=== PATIENT | female | born 1970 | race Caucasian/White ===

== ENCOUNTER 2022-12-10 16:55 | Emergency (ER) | payer OTHER, SELFPAY ==
[2022-12-10 16:58] VITALS: BP 113/03; PULSE 64; RESP 14; TEMP 36.6; O2SAT 100; BMI 27.3
--- NOTE | 2022-12-10 19:00 | EKG12_ITS ---
Test Reason : CP Blood Pressure : / mmHG Vent. Rate : 066 BPM Atrial Rate : 066 BPM P-R Int : 126 ms QRS Dur : 086 ms QT Int : 410 ms P-R-T Axes : 038 017 -08 degrees QTc Int : 429 ms Normal sinus rhythm Nonspecific ST abnormality Abnormal ECG Confirmed by ORA ROSENTHAL, FARZAD ([id number]), copy editor SHAKIRA DU ([id number]) on 12/11/2022 2:00:53 PM Referred By: ZOEY Confirmed By:FARZAD PAYAN MD
--- NOTE | 2022-12-10 19:44 | EX.ED.GENINJ ---
HPI History of Present Illness Chief Complaint: Fall Narrative Narrative: 52-year-old female presenting after mechanical fall. She states she was walking on the sidewalk and tripped. She fell forward onto her left hand, left elbow, left knee. She states she does not believe she hit her head or got knocked out. Not on any blood thinners. PFSH PFSH Allergy/AdvReac Type Severity Reaction Status Date / Time latex AdvReac Itching Verified 12/10/22 16:57 Social History Smoking Status: Never smoker ROS ROS ED Review of Systems ROS Unobtainable: Denies due to encephalopathy Constitutional Constitutional ED: Denies chills or fever(s) Eyes Eyes: Denies blurry vision ENT ENT ED: Denies rhinorrhea or sore throat Cardiovascular Cardiovascular: Denies chest pain or palpitations Respiratory/Chest Respiratory/Chest: Denies cough or dyspnea Gastrointestinal Gastrointestinal: Denies abdominal pain or vomiting Genitourinary Genitourinary ED: Denies dysuria Musculoskeletal Musculoskeletal: Reports other Details: Left elbow pain, left hand pain ; Denies myalgias or neck pain Integumentary Reports Abrasions Neurologic Neurologic: Denies headache(s) or paresthesias Psychiatric Psychiatric: Denies anxiety or depression Endocrine Endocrinology: Reports cold intolerance EXAM Physical Exam Const Vital Signs: 12/10/22 16:58 12/10/22 19:10 Temperature 98 F Temperature Source Temporal Pulse Rate 64 Respiratory Rate 14 Respiratory Depth Normal Respiratory Pattern Normal Blood Pressure 113/03 L Blood Pressure Mean 39 Pulse Ox 100 Oxygen Delivery Method Room Air MDM MDM MDM Narrative Medical decision making narrative: Patient presenting with mechanical fall. She states that she was walking outside and tripped on sidewalk. She believes it was either a crack or an elevated area of the sidewalk. She states she did not hit her head or lose consciousness. Left hand and has a superficial abrasion here. This does not appear to need sutures. She states that her left elbow hurts but she is ranging this very well mental believe she is an x-ray of the left elbow. She is also got a contusion to the left knee but is able to stand and walk without any difficulty. X-ray of the left hand on my interpretation shows no acute fracture or subluxation. She did develop some bruising on the hand. She was able to remove the ring prior to the swelling. Radiology interpreted the x-ray and agrees. Patient discharged home in stable condition. Impression: 1. Mechanical fall 2. Left hand contusion 3. Left knee contusion Lab Data Attestation: I reviewed the patient's lab results. Radiography Diagnostic Testing: Clinical Impression(s) from Imaging Studies Hand X-Ray 12/10/22 20:00 IMPRESSION: Negative left hand x-rays. Electronically Signed: Nadir Lee MD at 20:13 EST , Discharge Plan Triage Chief Complaint: Fall ED Provider: Julian Freire Dx/Rx/DC Orders Instructions: ED Hand Contusion, ED Skin Avulsion Primary Care Provider: Care Physician,No Primary Referrals: Care Physician,No Primary [Primary Care Provider] - Disposition Disposition: Home, Self Care
--- NOTE | 2022-12-10 20:00 | RAD_ITS ---
EXAM: XR LEFT HAND COMPLETE, 3 OR MORE VIEWS CLINICAL INDICATION: pain TECHNIQUE: Frontal, lateral and oblique views of the left hand. This report was created using [employer] report generation technology. COMPARISON: None. FINDINGS: BONES/JOINTS: Unremarkable. No acute fracture. No subluxation. Normal alignment. Preservation of the joint space. No sclerotic or destructive changes observed. SOFT TISSUES: Unremarkable. No soft tissue swelling or gas. No radiopaque foreign body. RAD/Hand Min 3 Views IMPRESSION: Negative left hand x-rays. Electronically Signed: Nadir Lee MD at 20:13 EST ,
--- NOTE | 2022-12-10 20:59 | ED.RN ---
CALLED [facility] FOR DRUG SCREEN
--- NOTE | 2022-12-10 21:07 | ED.RN ---
Pt requested to fill out Workmans comp form. Drug screen is required for [employer] [facility]. Radha called. Pt. filling out form then will be placed inthe waiting room to wait for Radha.
== END 2022-12-10 21:34 | disposition home or self-care (01) ==
PROVIDERS: Emergency Provider Student in an Organized Health Care Education/Training Program; Visit Provider Student in an Organized Health Care Education/Training Program
DX: S80.02XA Contusion of left knee, initial encounter (principal); S60.222A Contusion of left hand, initial encounter; W10.1XXA Fall (on)(from) sidewalk curb, initial encounter
CPT/HCPCS: 73130; 93005; 99282

== ENCOUNTER 2023-01-27 15:00 | Outpatient (RCR) | payer OTHER, SELFPAY ==
--- NOTE | 2023-01-15 12:25 | HP.OTEVAL_ITS ---
Patient's Visit Information MIKE TARANGO is a 52 year old F, referred to Occupational Therapy by Dr. Steven Hutton MD, with a diagnosis of 5th. Date of Evaluation: 01/15/23 Occupational Therapist: Radha Butler, ANKIT/Ashwin, CHT - Subjective This 52 year old female was seen for OT eval with dx of left 5th MC fracture. pt states while at work she was outside taking a walk on the sidewalk where she tripped and fell on 2022. pt states she suffered some other injuries but is OK. pt states she went to ER due to injuries and was seeing stars and she was not sure she hit her head. pt works for [employer]. Pt works 8 hours Mon-. 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 pt is right handed. pt states she has not been using her left hand for daily occupations due to soreness and weakness. pt would like to return to her PLOF. - Pain left hand 0 Pain Intensity Range: 4 - ROM Wrist: right 60/70 left 65/60 MP: right 0/95 left 0/90 PIP: right 0/90 left 0/90 DIP: right 0/65 left 0/60 ROM Comments: after moist heat DIP Flexion 75*. and left wrist ROM increased as well 65/75 - Strength Trailer Body Assembler: right 40# left 15# Lateral Pinch: right 10# left 10# Tripod Pinch: right 12# left 12# Strength Comments: pt demo with a decrease in left global climate change researcher strength - Sensation Sensation Comments: denies - Quick DASH-Disab of Arm,Shoulder& Hand Quick DASH Score: 16.6650 - Goals Goal:Trailer Body Assembler/Pinch strength at least 75% of unaffected hand: Yes Goal:No pain with affected hand use: Yes Goal:Full use of affected hand in daily activities including: Yes - Rehabilitation General Assessment: pt arrives 5 weeks and 1 day from [facility]. Pt is demo with a decrease in functional left global climate change researcher strength at this time. Pt has pain with use of left hand limiting her ind. with ADLs and IADLs. pt would benefit from skilled OT services 2-3x week for 6 weeks to return pts left global climate change researcher strength to her PLOF. Today therapist ed. pt on ROM and initiation of left global climate change researcher strength. pt demo understanding and agrees to POC. Rehabilitation Potential: Good - Anticipated Interventions A/AAROM/PROM, Strengthening, Modalities, Joint Protection/Energy Conservation, Home Program - Visit Plan Frequency: 2-3x /Week Duration: 4 Weeks TEXT: Thank you for the opportunity to evaluate your patient. For Medicare and Medicare HMO plans, please review the plan of care and approve it. It will need to be FAXED BACK to us at [phone] for Medicare purposes. Please let me know if there are questions or concerns regarding this plan of care. Physician Signature: Date:
--- NOTE | 2023-01-28 10:28 | HP.OTDCSUM ---
It has been my pleasure to treat MIKE TARANGO under orders from Dr. Steven Hutton MD, for the diagnosis of 5th for a total of 5 visit(s). Please see the following information for a summary of their discharge status. % Improvement: 90 Objective/Function: left geophysical manager strength 40# this is increasing from 15#. pt state she as returned to using her hand with ADls- making her bed and doing other daily tasks without difficulty. Therapist ed. pt that she has met the OT goals at this time and can be d/c with HEP. Pt demo understanding. Therapist ed. pt on UB t-band HEP pt demo understanding. Patient Goals: Regain Mobility, Regain Strength, Decrease Pain, Use Hand/Wrist/Arm Normally Again Goal:Communication Arts Lecturer/Pinch strength at least 75% of unaffected hand: Yes Goal:No pain with affected hand use: Yes Goal:Full use of affected hand in daily activities including: Yes Plan: add postural ex. Discharge Comments: pt met goals by 2nd visit and reported IND with ADLs and IADLs. pt was ed. on general UB strengthening and encouraged to join health and wellness program as she enjoyed the ex. pt was receptive. If there are questions or concerns regarding this patient's occupational therapy, please fell free to call me at [phone]. Thank you for the referral of this patient. Sincerely, Radha Butler OTR/L, CHT
== END 2023-01-27 19:00 | disposition home or self-care (01) ==
LOC: OT 15:00
PROVIDERS: Referring Provider Orthopaedic Surgery Sports Medicine; Visit Provider Orthopaedic Surgery Sports Medicine
DX: S62.308A Unspecified fracture of other metacarpal bone, initial encounter for closed fracture (principal); S60.222A Contusion of left hand, initial encounter
CPT/HCPCS: 97110; 97166; 97530

== ENCOUNTER → 2023-04-16 | Outpatient (CLI) | payer OTHER, SELFPAY ==
[2023-04-16 13:12] LABS: Absolute Lymphocyte Count 2.67 X10^3/uL (0.83-4.51); Absolute Neutrophil Count 4.5 X10^3/uL (2.0-7.7); Basophil# 0.04 X10^3/uL; Basophil% 0.5 % (0-1); Eosinophil# 0.28 X10^3/uL; Eosinophils% 3.5 % (0-5); Hematocrit 42.9 % (37-47); Hemoglobin 12.9 g/dL (12.0-15.0); Lymphocyte # 2.67 X10^3/ul (0.83-4.51); Lymphocyte % 33.2 % (19-41); Mean Corp Hgb Conc 30.1 g/dL (32-36); Mean Corpuscular Hgb 28.9 pg (27.0-32.0); Mean Corpuscular Volume 96.2 fL (81-99); Monocyte# 0.51 X10^3/uL; Monocyte% 6.3 % (0-10); NRBC Flagged by Analyzer 0 % (0-5); Neutrophil # 4.51 X10^3/uL (2.7-7.7); POSITIVE COUNT YES; RBC Distribution Width CV 13.6 % (11.6-14.6); RBC Distribution Width SD 48.4 fl (35.1-43.9); Red Blood Count 4.46 M/mm3 (4.2-5.4); White Blood Count 8.1 K/mm3 (4.4-11.0)
[2023-04-16 13:41] LABS: Differential Indicated SCAN CRITERIA MET
[2023-04-16 13:42] LABS: Differential Comment SCANNED; Platelet Estimate ADEQUATE (ADEQ)
[2023-04-16 14:23] LABS: ALB/GLOB Ratio 1.1 RATIO (0.9-2.4); AST(SGOT) 18 U/L (15-37); Alanine Aminotransfer ALT/SGPT 25 U/L (13-56); Albumin, Serum 3.8 g/dL (3.2-5.0); Alkaline Phosphatase 92 U/L (45-117); Anion Gap 6 (5-15); BUN 12 mg/dL (7-18); BUN/Creat Ratio 15.7 RATIO (10-20); Calcium,Total 9.3 mg/dL (8.5-10.1); Chloride 110 mmol/L (98-107); Cholesterol 189 mg/dL (200); Creatinine, Serum 0.76 mg/dL (0.55-1.02); EST Glomerular Filtration Rate 84 mL/min (>60); Est Glom Filt Rate - Afr Amer 102 mL/min (>60); Globulin 3.4 g/dL (2.2-4.2); Glucose 94 mg/dL (74-106); High Density Lipoprotein 67 mg/dL; Protein, Total 7.2 g/dL (6.4-8.2); Sodium Level 141 mmol/L (136-145); Thyroid Stim Hormone (TSH) 2.92 uIU/mL (0.358-3.74); Triglycerides 88 mg/dL; Very Low Density Lipoprotein 18 mg/dL (5-40)
[2023-04-16 14:45] LABS: Progesterone Level 15.57 ng/mL (See Comment); T3 Total - Triiodothyronine 0.83 ng/mL (0.6-1.81)
[2023-04-16 15:44] LABS: Hemoglobin A1c 5.4 % (3.8-5.6)
[2023-04-23 01:06] LABS: Estrogen, Total, Serum 59 pg/mL (.)
== END | disposition home or self-care (01) ==
LOC: BIMLAB 08:36
PROVIDERS: PCP Internal Medicine; Visit Provider Internal Medicine
DX: E03.9 Hypothyroidism, unspecified (principal); R73.03 Prediabetes; Z79.890 Hormone replacement therapy
CPT/HCPCS: 36415; 80053; 80061; 82672; 83036; 84144; 84439; 84443; 84480; 85025

== ENCOUNTER → 2023-08-04 | Outpatient (CLI) | payer OTHER, SELFPAY ==
[2023-08-04 15:25] LABS: Absolute Lymphocyte Count 2.59 X10^3/uL (0.83-4.51); Absolute Neutrophil Count 4.9 X10^3/uL (2.0-7.7); Basophil# 0.04 X10^3/uL; Basophil% 0.5 % (0-1); Eosinophil# 0.13 X10^3/uL; Eosinophils% 1.6 % (0-5); Hematocrit 42.7 % (37-47); Hemoglobin 13.2 g/dL (12.0-15.0); Lymphocyte # 2.59 X10^3/ul (0.83-4.51); Lymphocyte % 31.2 % (19-41); Mean Corp Hgb Conc 30.9 g/dL (32-36); Mean Corpuscular Volume 93.8 fL (81-99); Mean Platelet Vol. 10.9 fl (6.2-12.0); Monocyte% 7.2 % (0-10); NRBC Flagged by Analyzer 0 % (0-5); Platelet Count 329 K/mm3 (150-450); RBC Distribution Width SD 44.7 fl (35.1-43.9); Red Blood Count 4.55 M/mm3 (4.2-5.4); White Blood Count 8.3 K/mm3 (4.4-11.0)
[2023-08-04 15:57] LABS: ALB/GLOB Ratio 1.1 RATIO (0.9-2.4); AST(SGOT) 17 U/L (15-37); Alanine Aminotransfer ALT/SGPT 30 U/L (13-56); Albumin, Serum 4.1 g/dL (3.2-5.0); Alkaline Phosphatase 106 U/L (45-117); Anion Gap 5 (5-15); BUN 13 mg/dL (7-18); BUN/Creat Ratio 18.2 RATIO (10-20); Calcium,Total 9.5 mg/dL (8.5-10.1); Chloride 108 mmol/L (98-107); Creatinine, Serum 0.71 mg/dL (0.55-1.02); EST Glomerular Filtration Rate 91 mL/min (>60); Est Glom Filt Rate - Afr Amer 110 mL/min (>60); Globulin 3.8 g/dL (2.2-4.2); Glucose 101 mg/dL (74-106); Potassium 3.6 mmol/L (3.5-5.1); Protein, Total 7.9 g/dL (6.4-8.2); Sodium Level 141 mmol/L (136-145); Thyroid Stim Hormone (TSH) 0.97 uIU/mL (0.358-3.74)
[2023-08-06 11:08] LABS: ANTINUCLEAR ANTIBODIES DIRECT Negative (Negative)
== END | disposition home or self-care (01) ==
LOC: BIMLAB 12:29
PROVIDERS: PCP Internal Medicine; Visit Provider Internal Medicine
DX: R51.9 Headache, unspecified (principal); E03.9 Hypothyroidism, unspecified
CPT/HCPCS: 36415; 80053; 84443; 85025; 86038; 86225; 86235

== ENCOUNTER → 2024-05-20 | Outpatient (CLI) | payer OTHER, SELFPAY ==
--- NOTE | 2024-05-20 13:03 | BI_ITS ---
MAMMOGRAPHY - BILATERAL SCREENING REASON FOR EXAM: Female, 54 years old. Routine annual screening examination. PERTINENT HISTORY: Non-contributory. TECHNIQUE: Digital bilateral breast aicha (3D mammographic acquisition) in the CC and MLO projections. 2-D mediolateral oblique (MLO) and craniocaudad (CC) views of both breasts were obtained. CAD: Full Field Digital Mammography with Computer Added Detection was performed. COMPARISON: Comparison is made with prior outside examination dated June 21, 2021. FINDINGS: Breast Composition: The breasts are heterogeneously dense, which may obscure small masses. There are no dominant masses or suspicious calcifications. No other significant abnormalities are identified. There has been no significant change since the prior study. BI/SCRN MAMM (CAD)W/AICHA BILAT IMPRESSION: Stable bilateral screening mammogram. Yearly follow-up mammogram recommended. (A) ASSESSMENT CATEGORY: BIRADS Category 1: Negative. A letter regarding these results will be sent to the patient by the facility within 30 days. Approximately 10% of breast cancers are not detected by mammography. A normal mammogram should not delay biopsy of a clinically suspicious abnormality. [id number] Electronically Signed: Yosi Saeed MD at 14:42 EDT ,
== END | disposition home or self-care (01) ==
LOC: OPBI 13:02
PROVIDERS: PCP Internal Medicine; Referring Provider Internal Medicine; Visit Provider Internal Medicine
DX: Z12.31 Encounter for screening mammogram for malignant neoplasm of breast (principal)
CPT/HCPCS: 77063; 77067

== ENCOUNTER → 2025-10-25 | Outpatient (CLI) | payer OTHER, SELFPAY ==
--- NOTE | 2025-10-25 13:45 | BI_ITS ---
EXAM: SCRN MAMM (CAD)W/AICHA BILAT DATE: 10/25/2025 CLINICAL HISTORY: F, Age 55 y/o , SCRN MAMM (CAD)W/AICHA BILAT No family history. TECHNIQUE: Procedure Code: [id number] Modality: MG Procedure: SCRN MAMM (CAD)W/AICHA BILAT COMPARISON: Prior exam(s) dated May 20, 2024.. FINDINGS: TISSUE DENSITY: The breasts are heterogeneously dense, which may obscure small masses. Bilateral Breast Mammographic Findings: No significant masses, calcifications or other abnormalities are identified. Stable small benign-appearing bilateral axillary lymph nodes. No suspicious masses, areas of developing architectural distortion, or suspicious calcifications. There has been no significant interval change. BI/SCRN MAMM (CAD)W/AICHA BILAT IMPRESSION: Stable bilateral screening mammogram. OVERALL FINAL ASSESSMENT BI-RADS 2: BENIGN RECOMMENDATION: Routine annual follow-up in 1 Year Additional Recommendation none A letter with findings and recommendations will be mailed to the patient. Reading Location: [facility]
--- OUTSIDE RECORDS SUMMARY | 2025-10-25 19:59 | XMS RPT_ITS | CCD ---
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 PROCESS [facility] Care Team Providers Care Breaker Layer Name Role Phone Unavailable Primary Care Provider Unavailabl e Care Physician, No Primary Primary Care Provider Unavailable Care Physician, No Primary Referring Provider Un available ELLIOT Dudley Attending Provider [phone] MD Steven Hutton Attending Provider [phone] Veto Mares Attending Unavailable Ann Sutton Primary Care Unavailable Ann Sutton Referring Unavailable Ann Sutton Attending Unavailable Ann Sutton Primary Care Unavailable Allergies Allergy Classification Reported Allergen(s) Allergy Type Date of Onset Reaction(s) Facility (2 sources) Latex Propensity to adverse reactions 3 Itching [facility] (1 source) Latex Drug allergy (disorder) 3 [facility] Repository Medications Current Medications Medication Drug Class(es) Dates Sig (Normalized) Sig (Original) Estradiol Hemihyd,Micro (Bulk) (1 source) Start: 01-02-2023 Estradiol Hemihyd,Micro (Bulk) Active [facility] January 02, 2023 1:00am progesterone 100 mg oral capsule (1 source) Progesterone Start: 01-06-2023 take 100 mg by mouth once daily in the morning Progesterone Micronized Active 100 MG PO EVERY MORNING January 06, 2023 1:00am off 7 days; repeat cycle thyroid (half-way) 60 mg oral tablet (1 source) Start: 01-02-2023 Thyroid (Pork) (Zebulon Thyroid) 60 mg tablet Active TAB PO January 02, 2023 1:00am Problems Problem Classification Problem Date Documented Da te Episodic/Chronic Fracture of upper limb (2 sources) Fracture of metacarpal bone; Translations: [Unspecified fracture of other metacarpal bone, initial encounter for closed fracture] 01-02-2023 Episodic Other screening for suspected conditions (not mental disorders or infectious disease) (1 source) Encounter for screening mammogram for malignant neoplasm of breast; Translations: [Encounter for screening mammogram for malignant neoplasm of breast] Onset: 06-09-2025 Episodic Residual codes; unclassified (1 source) Procedure not done; Translations: [Procedure and treatment not carried out, unspecified reason] Episodic Superficial injury; contusion (7 sources) Contusion of hand; Translations: [Contusion of left hand, initial encounter] 01-02-2023 Episodic Unclassified (2 sources) Contusion of left elbow, initial encounter 01-02-2023 Results Test Name Value Interpretation Reference Range Facil ity Chest PA and Lateralon 08-18 Chest PA and Lateral [facility] [address] [place] [address] Chest PA and Lateral MR#: [id number] Acct: [id number] Name: MIKE TARANGO Rep #: [id number] : 1970 F 54 From: Christiano Ayers MD PCP: Dr. Ann Sutton DO Status: DEP AMB Study: Chest PA and Lateral Date of Exam: 08/18/24 Exam# [id number] Ordering Dr: Ann Sutton DO [id number] STUDY: X-RAY CHEST REASON FOR EXAM: Female, 54 years old. Fever and cough TECHNIQUE: PA and lateral views of the chest. COMPARISON: None. FINDINGS: The lungs are clear and expanded. There is no demonstrated pleural abnormality. Normal size heart. Normal mediastinum and jose l. Normal visualized pulmonary arteries. Normal visualized aortic arch and descending thoracic aorta. Normal visualized thoracic spine. Normal visualized ribs, clavicles, and shoulders. There is no demonstrated abnormality of the visualized soft tissue structures of the upper abdomen. RAD/Chest PA and Lateral IMPRESSION: Normal x-ray examination of the chest. Electronically Signed: Anjum Ayers MD at 15:44 EDT , CC: Dr. Ann Sutton DO Cattle Killer: Signed Normal [facility] CNOVon 12-10-2022 CNOV Office Visit (UCWSTR) MIKE TARANGO ([id number]) 1970 F Date Time Provider Department 12/10/22 4:15 PM FRANKY CARBAJAL WS During your visit today, we recorded the following information about you: Franky Carbajal APRN.AUTO DEALER 12/10/2022 4:22 PM Signed Nontoxic-appearing female presents urgent care accompanied by . Chief complaint trauma. Patient states she was walking on the sidewalk when she tripped today. Patient states she struck her left hand and chest possible head. She did have slurred speech and dizziness after initial injury. Presents today for evaluation. With patient's presenting symptoms I recommend patient be seen the ED for further evaluation care. Patient verbalized understand agrees with plan of care. Will be seen at [facility]. Franky Carbajal APRN.AUTO DEALER Allergies As of Date: 12/10/2022 (Not on File) Date Reviewed: Never Reviewed Primary Visit Diagnosis:Procedure not carried out [Z53.9] Problem List As Of Date: 12/10/2022 (None) Encounter Status:Closed by FRANKY CARBAJAL on 12/10/22 Normal [facility] Vital Signs Date Time Vital Sign Value Performing Clinician Reza min 01-16-2023 10:44-0500 Body temperature 97.8 [degF] No Primary Care Physician [facility] 01-16-2023 10:44-0500 Diastolic blood pressure 76 mm[Hg] No Primary Care Physician [facility] 01-16-2023 10:44-0500 Heart rate 94 /min No Primary Care Physician [facility] 01-16-2023 10:44-0500 Respiratory rate 15 /min No Primary Care Physician [facility] 01-16-2023 10:44-0500 SaO2% (BldA) [Mass fraction] 99 % No Primary Care Physician [facility] 01-16-2023 10:44-0500 Systolic blood pressure 122 mm[Hg] No Primary Care Physician [facility] 01-02-2023 10:48-0500 Body height 162.56 cm No Primary Care Physician [facility] 01-02-2023 10:48-0500 Body mass index (BMI) [Ratio] 26.4 kg/m2 No Primary Care Physician [facility] 01-02-2023 10:48-0500 Body temperature 97.7 [degF] No Primary Care Physician [facility] 01-02-2023 10:48-0500 Body weight 69.85 kg No Primary Care Physician [facility] 01-02-2023 10:48-0500 Diastolic blood pressure 66 mm[Hg] No Primary Care Physician [facility] 01-02-2023 10:48-0500 Heart rate 80 /min No Primary Care Physician [facility] 01-02-2023 10:48-0500 Respiratory rate 14 /min No Primary Care Physician [facility] 01-02-2023 10:48-0500 SaO2% (BldA) [Mass fraction] 97 % No Primary Care Physician [facility] 01-02-2023 10:48-0500 Systolic blood pressure 108 mm[Hg] No Primary Care Physician [facility] 12-10-2022 16:58-0500 Body height 162.56 cm [facility] 12-10-2022 16:58-0500 Body mass index (BMI) [Ratio] 27.3 kg/m2 [facility] 12-10-2022 16:58-0500 Body temperature 98 [degF] [facility] 12-10-2022 16:58-0500 Body weight 72.4 kg [facility] 12-10-2022 16:58-0500 Diastolic blood pressure 3 mm[Hg] [facility] 12-10-2022 16:58-0500 Heart rate 64 /min [facility] 12-10-2022 16:58-0500 Respiratory rate 14 /min [facility] 12-10-2022 16:58-0500 SaO2% (BldA) [Mass fraction] 100 % [facility] 12-10-2022 16:58-0500 Systolic blood pressure 113 mm[Hg] [facility] Encounters Encounter Date Encounter Type Care Provider Facility Start: 06-13-2025 ambulatory Ann Sutton Facilit y:[facility] Start: 08-18-2024 End: 08-18-2024 ambulatory Arcadia Vishnu Facility:[facility] Start: 01-27-2023 End: 01-27-2023 ambulatory No Primary Care Physician [facility] Work Phone: Start: 01-27-2023 End: 01-27-2023 Discharged Recurring No Primary Care Physician [facility]-Occupational Therapy Start: 01-16-2023 End: 01-16-2023 Patient encounter procedure No Primary Care Physician [facility] Start: 01-06-2023 End: 01-06-2023 Patient encounter procedure No Primary Care Physician [facility] Start: 01-02-2023 End: 01-02-2023 Patient encounter procedure No Primary Care Physician [facility] Start: 12-10-2022 End: 12-10-2022 ambulatory Facility:[facility] Start: 12-10-2022 End: 12-10-2022 Emergency department patient visit [facility]Emergency Department Start: 12-10-2022 End: 12-10-2022 Patient encounter procedure Franky Carbajal INSURANCE VERIFIER.AUTO DEALER Work Phone: [facility] Comment on above: Procedure not barbara d out (Primary Dx) Procedures Date Procedure Procedure Detail Performing Clinician Start: 01-02-2023 Plain x-ray of hand No Primary Care Physician Start: 01-02-2023 Plain x-ray of wrist No Primary Care Physician Start: 12-10-2022 Plain x-ray of hand Plan of Treatment Date Care Activity Detail Author Start: 01-06-2023 Patient referral [facility] Work Phone: Start: 01-02-2023 Patient referral [facility] Work Phone: Start: 11-10-2022 DEPRESSION ASSESSMENT DEPRESSION ASSESSMENT [facility] Start: 07-11-2022 Influenza vaccination INFLUENZA (#1) [facility] Start: 2020 SHINGRIX VACCINE (1 of 2) SHINGRIX VACCINE (1 of 2) [facility] Start: 2015 COLOGUARD (FIT-DNA) COLOGUARD (FIT-DNA) [facility] Start: 2015 Colonoscopy COLONOSCOPY [facility] Start: 2015 COLORECTAL CANCER SCREENING COLORECTAL CANCER SCREENING [facility] Start: [address] COLONOGRAPHY [facility] Start: 2015 DIABETES SCREEN DIABETES SCREEN [facility] Start: 2015 FECAL OCCULT BLOOD FECAL OCCULT BLOOD [facility] Start: 2015 LIPID SCREEN LIPID SCREEN [facility] Start: 2015 SIGMOIDOSCOPY SIGMOIDOSCOPY [facility] Start: 2010 Mammography MAMMOGRAM [facility] Start: 2000 HPV TESTING HPV TESTING [facility] Start: 1991 PAP TESTING PAP TESTING [facility] Start: 1989 Urine microalbumin profile DTAP,TDAP,TD (1 - Tdap) [facility] Start: 1988 HEPATITIS C SCREENING HEPATITIS C SCREENING [facility] Start: 1988 HIV SCREENING HIV SCREENING [facility] Start: 1970 COVID-19 VACCINE (#1) COVID-19 VACCINE (#1) [facility] Start: 1970 HEPATITIS B (1 of 3 - 3-dose series) HEPATITIS B (1 of 3 - 3-dose series) [facility] Patient Education ED Hand Contus ion ED Skin Avulsion [facility] Work Phone: Patient referral [facility] Work Phone: Payers Date Payer Category Payer Self-pay 2024 Unknown [id number] Unknown [id number] Unknown [id number] Unknown [id number] Social History Date Type Detail Facility Start: 12-10-2022 End: 01-16-2023 Tobacco smoking status NHIS Unknown if ever smoked [facility] Start: 1970 Sex Assigned At Female W [facility] Start: 1970 Sex Assigned At Not on file [facility] Discharge summary 01-28-2023 Note Date & Type Note Facility 01-28-2023 Discharge summary Note Date/Time January 28, 2023 10:28am [facility] Occupational Therapy [facility] [address] [place] [address] / REHABILITATION SERVICES DISCHARGE SUMMARY MR#: [id number] Acct: [id number] Name: MIKE TARANGO Rep #: [id number] : 1970 52 From: Radha Butler OTR/L, CHT Referring Dr.: Dr. Steven Hutton MD Status: REG RCR Eval Date: Discharge Date: It has been my pleasure to treat MIKE TARANGO under orders from Dr. Steven Hutton MD, for the diagnosis of 5th for a total of 5 visit(s). Please see the following information for a summary of their discharge status. % Improvement: 90 Objective/Function: left shoe coverer strength 40# this is increasing from 15#. pt state she as returned to using her hand with ADls- making her bed and doing other daily tasks without difficulty. Therapist ed. pt that she has met the OT goals at this time and can be d/c with HEP. Pt demo understanding. Therapist ed.pt on UB t-band HEP pt demo understanding. Patient Goals: Regain Mobility, Regain Strength, Decrease Pain, Use Hand/Wrist/Arm Normally Again Goal:Extension Service Specialist In Charge/Pinch strength at least 75% of unaffected hand: Yes Goal:No pain with affected hand use: Yes Goal:Full use of affected hand in daily activities including: Yes Plan: add postural ex. Discharge Comments: pt met goals by 2nd visit and reported IND with ADLs and IADLs. pt was ed. on general UB strengthening and encouraged to join health and wellness program as she enjoyed the ex. pt was receptive. If there are questions or concerns regarding this patient's occupational therapy, please fell free to call me at [phone]. Thank you for the referral of this patient. Sincerely, Radha Butler, OTR/L, CHT <Electronically signed by Radha Butler OTR/Ashwin, CHT> 01/28/23 1028 CC: Dr. Steven Hutton MD; No Primary Care Physician ~ MK Signed [facility] Work Phone: Progress note 12-10-2022 Note Date & Type Note Facility 12-10-2022 Note HNO ID: [id number] Author: Franky Carbajal APRN.BONI Service: ? Author Type: Nurse Practitioner Type: Progress Notes Filed: 12/10/2022 4:22 PM Note Text: Nontoxic-appearing female presents urgent care accompanied by . Chief complaint trauma. Patient states she was walking on the sidewalk when she tripped today. Patient states she struck her left hand and chest possible head. She did have slurred speech and dizziness after initial injury. Presents today for evaluation. With patient's presenting symptoms I recommend patient be seen the ED for further evaluation care. Patient verbalized understand agrees with plan of care. Will be seen at [facility]. Franky Carbajal APRN.BONI [facility] History of Present illness Narrative 12-10-2022 Franky Carbajal APRN.BONI - 12/10/2022 4:11 PM EST Note Date & Type Note Facility 12-10-2022 History of Presen t illness Narrative Nontoxic-appearing female presents urgent care accompanied by . Chief complaint trauma. Patient states she was walking on the sidewalk when she tripped today. Patient states she struck her left hand and chest possible head. She did have slurred speech and dizziness after initial injury. Presents today for evaluation. With patient's presenting symptoms I recommend patient be seen the ED for further evaluation care. Patient verbalized understand agrees with plan of care. Will be seen at [facility]. Franky Carbajal APRN.BONI documented in this encounter [facility] Discharge summary 12-10-2022 Note Date & Type Note Facility 12-10-2022 Discharge summary Note Date/Time December 10, 2022 7:47pm [facility] Medical Records Department [address] [place] [address] Emergency Department Summary 12/10/22 MR#: [id number] Acct: [id number] Name: MIKE TARANGO Rep #:[id number] : 1970 52 From: Julian Freire DO PCP: Care Physician,No Primary Status :REG ER Location: ED HPI History of Present Illness Chief Complaint: Fall Narrative Narrative: 52-year-old female presenting after mechanical fall. She states she was walkingon the sidewalk and tripped. She fell forward onto her left hand, left elbow, left knee. She states she does not believe she hit her head or got knocked out. Not on any blood thinners. PFSH PFSH Allergy/AdvReac Type Severity Reaction Status Date / Time latex AdvReac Itching Verified 12/10/22 16:57 Social History Smoking Status: Never smoker ROS ROS ED Review of Systems ROS Unobtainable: Denies due to encephalopathy Constitutional Constitutional ED: Denies chills or fever(s) Eyes Eyes: Denies blurry vision ENT ENT ED: Denies rhinorrhea or sore throat Cardiovascular Cardiovascular: Denies chest pain or palpitations Respiratory/Chest Respiratory/Chest: Denies cough or dyspnea Gastrointestinal Gastrointestinal: Denies abdominal pain or vomiting Genitourinary Genitourinary ED: Denies dysuria Musculoskeletal Musculoskeletal: Reports other Details: Left elbow pain, left hand pain ; Denies myalgias or neck pain Integumentary Reports Abrasions Neurologic Neurologic: Denies headache(s) or paresthesias Psychiatric Psychiatric: Denies anxiety or depression Endocrine Endocrinology: Reports cold intolerance EXAM Physical Exam Const Vital Signs: 12/10/22 16:58 12/10/22 19:10 Temperature 98 F Temperature Source Temporal Pulse Rate 64 Respiratory Rate 14 Respiratory Depth Normal Respiratory Pattern Normal Blood Pressure 113/03 L Blood Pressure Mean 39 Pulse Ox 100 Oxygen Delivery Method Room Air MDM MDM MDM Narrative Medical decision making narrative: Patient presenting with mechanical fall. She states that she was walking outside and tripped on sidewalk. She believes it was either a crack or an elevated area of the sidewalk. She states she did not hit her head or lose consciousness. Left hand and has a superficial abrasion here. This does not appear to need sutures. She states that her left elbow hurts but she is rangingthis very well mental believe she is an x-ray of the left elbow. She is also got a contusion to the left knee but is able to stand and walk without any difficulty. X-ray of the left hand on my interpretation shows no acute fractureor subluxation. She did develop some bruising on the hand. She was able to remove the ring prior to the swelling. Radiology interpreted the x-ray and agrees. Patient discharged home in stable condition. Impression: 1. Mechanical fall 2. Left hand contusion 3. Left knee contusion Lab Data Attestation: I reviewed the patient's lab results. Radiography Diagnostic Testing: Clinical Impression(s) from Imaging Studies Hand X-Ray 12/10/22 20:00 IMPRESSION: Negative left hand x-rays. Electronically Signed: Nadir Lee MD at 20:13 EST Reading Location ID and State: [facility] / MD Tel , Service support , Discharge Plan Triage Chief Complaint: Fall ED Provider: Julian Freire Dx/Rx/DC Orders Instructions: ED Hand Contusion, ED Skin Avulsion Primary Care Provider: Care Physician,No Primary Referrals: Care Physician,No Primary [Primary Care Provider] - Disposition Disposition: Home, Self Care What to do if you have Problems For any increased pain, shortness of breath, bleeding, nausea or vomiting, chestpain, or any unexpected problems, contact your Primary Care Provider. Call [facility] ([phone]) or report to the closest Emergency Room. Call 911 if necessary. 12/10/222057 <Electronically signed by Julian Freire DO> Cosigner Signature (if applicable): CC: No Primary Care Physician ~ Signed [facility] Work Phone: Evaluation note Note Date & Type Note Facility Evaluation note No assessment information availa ble [facility] Work Phone: Evaluation note Note Date & Type Note Facility Evaluation note Diagnosis Procedure not carried out- Primary Procedure not carried out for other reasons documented in this encounter [facility] Evaluation note Note Date & Type Note Facility Evaluation note Diagnosis Onset Date Abrasion of left hand acute Contusion of left elbow, initial encounter acute Contusion of left hand acute Contusion of left knee acute Contusion of left hand acute Nondisplaced fracture of fif th metacarpal bone acute [facility] Work Phone: Chief Complaint and Reason for Visit Chief Complaint FALL Chief Complaint FALL OBWC/ER FOLLOW UP/COMMUNITY ACTION INDY CO XRAY LEFT HAND F/U COMMUNITY ACTION L HAND FRACTURE RX HERE Reason for Visit Abrasion of left stallings d Contusion of left elbow, initial encounter Contusion of left hand Contusion of left knee Contusion of left hand Nondisplaced fracture of fifth metacarpal bone Advance Directives No Advanced Directives Records Found Advance Directive Response Recorded Date/ Time Living Will No December 10 7:10pm Power of Associate Professor Of Church Music No December 10, 2022 7:10pm Advance Directive Response Recorded Date/ Time Living Will No December 10 8:10pm Power of Associate Professor Of Church [employer] No December 10, 2022 8:10pm Summary Purpose Family History No Family History Records FoundNo Family History Records Found Additional Source Comments Care Teams (unrecognized sec tion and content) Team Status: Active Member Role Status Dates No Primary Care Physician Primary Care Provider Active Team Status: Inactive Member Role Status Dates No Primary Care Physician Primary Care Provider Active Dr. Julian Freire DO Emergency Provider Active Team Status: Inactive Member Role Status Dates No Primary Care Physician Primary Care Provider, Refer ring Provider Active Segundo ZARATE PA Attending Provider Active Team Status: Inactive Member Role Status Dates No Primary Care Physician Primary Care Provider Active ELLIOT Dorado Attending Provider Active Team Status: Inactive Member Role Status Dates No Primary Care Physician Primary Care Provider, Refer ring Provider Active Steven Hutton MD Attending Provider Active Team Status: Inactive Member Role Status Dates No Primary Care Physician Primary Care Provider Active Dr. Julian Freire DO Attending Provider, Emergency Provider Active Team Status: Inactive Member Role Status Dates No Primary Care Physician Primary Care Provider Active Steven Hutton MD Attending Provider, Referring Prov ider Active Goals (unrecognized section and content) Goals may be documented in a n alternate sectionGoals may be documented in an alternate section Source Comments (unrecognize d section and content) In the event this informatio n is protected by the Federal Confidentiality of Alcohol and Drug Abuse Patient Records regulations: The Federal rules restrict any use of the information to criminally investigate or prosecute any alcohol or drug abuse patient.[facility] INFORMATION SOURCE (unrecogn ized section and content) DATE CREATED AUTHOR 12/11/2022 [facility] DATE CREATED AUTHOR AUTHOR'S ORGANIZ ATION 06/11/2025 [facility] FOR RECORDS PERTAINING TO PATIENTS WHO ARE OR HAVE BEEN ENROLLED IN A CHEMICAL DEPENDENCY/SUBSTANCEABUSE PROGRAM, SOME INFORMATION MAY BE OMITTED. This clinical summary was aggregated from multiple sources. Caution should be exercised in using it in the provision of clinical care. This summary normalizes information from multiple sources, and as a consequence, information in this document may materially change the coding, format and clinical context of patient data. In addition, data may be omitted in some cases. CLINICAL DECISIONS SHOULD BE BASED ON THE PRIMARY CLINICAL RECORDS. [employer] provides no warranty or guarantee of the accuracy or completeness of information in this document.
== END | disposition home or self-care (01) ==
PROVIDERS: PCP Internal Medicine; Referring Provider Internal Medicine; Visit Provider Internal Medicine
DX: Z12.31 Encounter for screening mammogram for malignant neoplasm of breast (principal)
CPT/HCPCS: 77063; 77067